=== PATIENT | male | born 2000 | race Caucasian/White ===

== ENCOUNTER 2025-01-31 18:27 | Emergency (ER) | payer SELFPAY ==
[~2025-01-31] VITALS: Ht 172.7 cm; Wt 84.0 kg
[2025-01-31] MEDS: EPINEPHRINE 1:1000 1 MG/ML AMP INJ ONE (18:57)
[2025-01-31] MEDS: DIPHENHYDRAMINE 50MG/ML VIAL IV ONE (18:57)
[2025-01-31] MEDS: SODIUM CHLORIDE 0.9% 1,000 ML IV ONE (18:58)
[2025-01-31] MEDS: FAMOTIDINE 20MG/2ML VIAL IV ONE (18:58)
[2025-01-31] MEDS: METHYLPREDNISOLONE SOD SUCC 125MG/2ML (ACT-O-VIAL) IV ONE (18:58)
[2025-01-31] MEDS: IPRATROPIUM BROMIDE (0.02%) 0.5MG/2.5ML NEB HHN ONE (18:59)
[2025-01-31] MEDS: ALBUTEROL (0.083%) 2.5MG/3ML NEB HHN ONE (18:59)
[2025-01-31 19:00] VITALS: PULSE 118; RESP 16; O2SAT 98
[2025-01-31 19:37] LABS: BASOPHILS % 0.8 % (0.0-2.0); EOSINOPHILS % 1.0 % (0.0-5.0); HEMATOCRIT. 43.7 % (42.0-52.0); HEMOGLOBIN. 14.7 g/dL (14.0-18.0); LYMPHOCYTES % 20.1 % (20.0-50.0); MEAN PLATELET VOLUME 7.5 fl (7.4-10.4); MONOCYTES % 7.9 % (2.0-8.0); NEUTROPHILS % 70.2 % (40.0-76.0); PLATELET 342 x1000/uL (130-400); RED BLOOD CELL COUNT 5.25 mill/uL (4.7-6.1); RED CELL DISTRIBUTION WIDTH 13.6 % (11.6-14.6)
[2025-01-31 19:49] LABS: CREATININE 1.3 mg/dL (0.6-1.3); UREA NITROGEN BLOOD 9 mg/dL (9-23)
[2025-01-31 19:51] LABS: ASPARTATE AMINOTRANSFERASE 63 IU/L (<34); BILIRUBIN TOTAL 1.0 mg/dL (0.1-1.0)
[2025-01-31 19:52] LABS: PROTEIN TOTAL 7.6 g/dL (6.0-8.3)
[2025-01-31 20:00] VITALS: TEMP 36.9
[2025-01-31] MEDS ORDERED: P50 MT (21:03)
[2025-01-31] MEDS ORDERED: EPIN0.3P3 IM (21:03)
[2025-01-31] MEDS ORDERED: ALBU90AE INH (21:21)
[2025-01-31 21:45] VITALS: BP 143/73; PULSE 116; RESP 14; O2SAT 97
== END 2025-01-31 21:50 | disposition home or self-care (01) ==
LOC: ER 18:27
DX: T78.2XXA Anaphylactic shock, unspecified, initial encounter (principal); J45.909 Unspecified asthma, uncomplicated; Z98.890 Other specified postprocedural states; X58.XXXA Exposure to other specified factors, initial encounter
CPT/HCPCS: 80053; 85025; 36415; 94640; 96361; 96374; 96375; 99291; J1200; J3490; J1308; J2919; Z7610 ×4; J7030; 94664